=== PATIENT | female | born 1995 | race Caucasian/White ===

== ENCOUNTER 2024-06-19 05:00 | Emergency (ER) | payer MEDICAID ==
[~2024-06-19] VITALS: Ht 160 cm; Wt 66.0 kg
[2024-06-19 05:13] VITALS: BP 100/63; PULSE 76; RESP 12; TEMP 98.2; O2SAT 98
[2024-06-19] MEDS ORDERED: IBUPROFEN 600MG TABLET PO ONE (06:00)
== END 2024-06-19 08:09 | disposition home or self-care (01) ==
LOC: ER 05:00
DX: S60.511A Abrasion of right hand, initial encounter (principal); W18.39XA Other fall on same level, initial encounter; Y93.89 Activity, other specified; Y92.89 Other specified places as the place of occurrence of the external cause; Y99.8 Other external cause status
CPT/HCPCS: 29125; 73110; 73130; 99284

== ENCOUNTER 2024-06-19 15:42 | Emergency (ER) | payer MEDICAID ==
[~2024-06-19] VITALS: Ht 162.6 cm; Wt 65.8 kg
[2024-06-19 15:51] VITALS: TEMP 98.2; O2SAT 97
[2024-06-19 16:13] VITALS: BP 107/72; PULSE 108; RESP 18
[2024-06-19] MEDS: IBUPROFEN 600MG TABLET PO ONE (16:13)
== END 2024-06-19 20:42 | disposition home or self-care (01) ==
LOC: ER 15:42
DX: S20.212A Contusion of left front wall of thorax, initial encounter (principal); S09.90XA Unspecified injury of head, initial encounter; Y08.89XA Assault by other specified means, initial encounter; Y93.89 Activity, other specified; Y92.89 Other specified places as the place of occurrence of the external cause; Y99.8 Other external cause status
CPT/HCPCS: 71045; 74018; 99284